=== PATIENT | female | born 1980 | race Caucasian/White ===

== ENCOUNTER 2017-05-04 23:59 | Emergency (ER) | payer OTHER ==
[2017-05-05 00:05] VITALS: RESP 18
[2017-05-05] MEDS ORDERED: IBUPROFEN 800 MG TAB PO STA (00:30)
--- NOTE | 2017-05-05 00:37 | XR ---
Exam: XR RIGHT ANKLE History: Pain. Comparison: None provided. Technique: 3 views. Findings: No acute displaced fracture or dislocation. No significant arthritic or erosive changes. No soft tissue calcification. No erosive changes. No aggressive appearing osseous process. Ankle mortise is maintained, but examination is nonweightbearing. Question mild lateral soft tissue edema. Impression: No acute fracture or dislocation. Impression mild lateral swelling. Correlate clinically.
--- NOTE | 2017-05-05 00:58 | ED ---
General Adult HPI - General Chief complaint: Extremity Injury, Lower Stated complaint: ankle pain Time Seen by Provider: 05/05/17 00:09 Source: patient, RN notes reviewed, old records reviewed Mode of arrival: wheelchair Limitations: no limitations - History of Present Illness Initial comments: 37-year-old female presenting for right ankle/foot injury. Patient states that she jumped out of a hayloft into a pile of hay and twisted her right ankle earlier this evening. She denies any other injury associated. She states she has been able to ambulate since this time, but is has been painful. She has not taken any medication for this. She denies any other complaints at this time. - Related Data Home Medications Medication Instructions Recorded Confirmed Ccs-Ryja-Pyjch Acid 1 tab PO DAILY 11/21/15 01/29/16 [-U Capsule] Omeprazole [PriLOSEC] 20 mg PO AC-BRKFST 12/05/15 01/29/16 Ondansetron HCl [Zofran] 8 mg PO Q8HR PRN 12/17/15 01/29/16 Previous Rx's Medication Instructions Recorded Ibuprofen [Motrin] 800 mg PO Q8HR PRN #21 tab 05/05/17 Allergies Allergy/AdvReac Type Severity Reaction Status Date / Time Penicillins Allergy Rash/Hives Verified 05/05/17 00:05 Review of Systems ROS Statement: Those systems with pertinent positive or pertinent negative responses have been documented in the HPI. ROS Other: All systems not noted in ROS Statement are negative. Past Medical History Past Medical History: No Reported History History of Any Multi-Drug Resistant Organisms: None Reported Past Surgical History: No Surgical Hx Reported Past Anesthesia/Blood Transfusion Reactions: No Reported Reaction Past Psychological History: No Psychological Hx Reported Smoking Status: Never smoker Past Alcohol Use History: None Reported Past Drug Use History: None Reported - Past Family History Father Family Medical History: Diabetes Mellitus, Hypertension General Exam - General Exam Comments Initial Comments: General: Awake and Alert. No acute distress. Does not appear acutely ill. Eyes: DWAYNE, No scleral icterus. HENT: Atraumatic, normocephalic. Mucous membranes moist. T Neck: No JVD. Trachea midline. Cardiovascular: Regular rate and rhythm. No murmur, rub, or gallop is appreciated. Distal pulses intact, DP 2+ bilaterally. Respiratory: Lungs are clear to auscultation bilaterally. No wheezes, rales, rhonchi. No respiratory distress. Gastrointestinal: Soft, Nondistended. Musculoskeletal: Right lateral ankle tenderness. Right dorsal lateral foot tenderness. No proximal fifth metatarsal tenderness. Normal ROM. No gross deformity. No strength deficits. Neurological: A&Ox3. There are no obvious motor or sensory deficits. Coordination appears grossly intact. Speech is normal. Skin: Skin is warm and dry and no rashes or lesions are noted. Psychiatric: Cooperative, appropriate mood & affect, normal judgment. Limitations: no limitations Course Vital Signs 05/05/17 05/05/17 00:02 01:09 Temperature 97.9 F 98.1 F Pulse Rate 74 63 Respiratory 18 18 Rate Blood Pressure 114/67 115/56 O2 Sat by Pulse 98 100 Oximetry Medical Decision Making - Medical Decision Making 37-year-old female presenting for right ankle/foot injury. Mild lateral foot and ankle swelling. No evidence of gross deformity. X-ray imaging is performed without evidence of acute fracture. Discussed ice and elevation and supportive shoes. Given Motrin in the ED. Rx for NSAIDs provided. Discussed close follow-up with PCP. Discussed concerning signs symptoms for immediate return to the ED. Discussed follow-up imaging in 7-10 days if not feeling improved to rule out occult fracture. Order for crutches given as well. Discussed WBAT. Patient and are agreeable with plan and discharge home. - Radiology Data Radiology results: report reviewed, image reviewed Disposition Clinical Impression: Right ankle sprain, Right foot pain Disposition: HOME SELF-CARE Condition: Stable Instructions: Ankle Sprain (ED), Foot Contusion (ED) Prescriptions: Ibuprofen [Motrin] 800 mg PO Q8HR PRN #21 tab PRN Reason: Pain Referrals: Negra Garza III, MD [Primary Care Provider] - 1-2 days Time of Disposition: 01:10
--- NOTE | 2017-05-05 01:05 | XR ---
Exam: XR RIGHT FOOT History: Pain. Comparison: None provided. Technique: No acute displaced fracture or dislocation. Findings: No acute displaced fracture or dislocation. No significant arthritic or erosive changes. No aggressive appearing process. No soft tissue calcifications. Impression: No acute displaced fracture or dislocation. If there is high clinical concern for occult fracture, consider repeat radiographs in 10 days.
[2017-05-05 01:10] VITALS: BP 115/56; PULSE 63; TEMP 98.1
== END 2017-05-05 01:22 | disposition home or self-care (01) ==
LOC: EC 23:59
DX: S93.401A Sprain of unspecified ligament of right ankle, initial encounter (principal); M79.671 Pain in right foot; Z79.899 Other long term (current) drug therapy; Z88.0 Allergy status to penicillin; X50.1XXA Overexertion from prolonged static or awkward postures, initial encounter; Y93.39 Activity, other involving climbing, rappelling and jumping off; Y92.89 Other specified places as the place of occurrence of the external cause
CPT/HCPCS: 99284

== ENCOUNTER 2019-11-30 10:45 | Emergency (ER) | payer OTHER ==
--- NOTE | 2019-11-30 11:27 | ED ---
General Adult HPI - General Chief complaint: Extremity Problem,Nontraumatic Stated complaint: Shoulder pain, SOB Time Seen by Provider: 11/30/19 11:03 Source: patient Mode of arrival: ambulatory Limitations: no limitations - History of Present Illness Initial comments: Patient is a 39-year-old female with no significant past medical history presenting to the emergency department with chief complaint of left shoulder pain. Patient reports yesterday she somewhat sick possibly with the flu. She reports waking up this morning with a left upper chest pain radiating to the left shoulder. Patient states the pain is exacerbated with full inspiration. Patient also reports shortness of breath not exacerbated on exertion. Also reports a mild, intermittent nonproductive cough. Patient also reports a diaphoretic episode but denies any dizziness, lightheadedness, blurry vision, headache, back pain or abdominal pain nausea or vomiting. Patient is not a smoker. Denies night sweats fevers or chills. Only has one family member with an early cardiac secondary to congenital heart disease. No trauma to the region. No reproducible chest pain. - Related Data Home Medications Medication Instructions Recorded Confirmed Ige-Qmtr-Levsx Acid 1 tab PO DAILY 11/21/15 01/29/16 [-U Capsule] Omeprazole [PriLOSEC] 20 mg PO AC-BRKFST 12/05/15 01/29/16 Ondansetron HCl [Zofran] 8 mg PO Q8HR PRN 12/17/15 01/29/16 Previous Rx's Medication Instructions Recorded Ibuprofen [Motrin] 800 mg PO Q8HR PRN #21 tab 05/05/17 Azithromycin [Zithromax Z-pack] 0 mg PO DIRECTED #1 pack 11/30/19 Allergies Allergy/AdvReac Type Severity Reaction Status Date / Time Penicillins Allergy Rash/Hives Verified 11/30/19 10:51 Review of Systems ROS Statement: Those systems with pertinent positive or pertinent negative responses have been documented in the HPI. ROS Other: All systems not noted in ROS Statement are negative. Past Medical History Past Medical History: No Reported History History of Any Multi-Drug Resistant Organisms: None Reported Past Surgical History: No Surgical Hx Reported Past Anesthesia/Blood Transfusion Reactions: No Reported Reaction Past Psychological History: No Psychological Hx Reported Smoking Status: Never smoker Past Alcohol Use History: None Reported Past Drug Use History: None Reported - Past Family History Father Family Medical History: Diabetes Mellitus, Hypertension General Exam Limitations: no limitations General appearance: alert, in no apparent distress Head exam: Present: atraumatic, normocephalic, normal inspection Eye exam: Present: normal appearance, PERRL, EOMI Pupils: Present: normal accommodation ENT exam: Present: normal exam, normal oropharynx, mucous membranes moist, TM's normal bilaterally, normal external ear exam Neck exam: Present: normal inspection, full ROM. Absent: tenderness Respiratory exam: Present: normal lung sounds bilaterally. Absent: wheezes, rhonchi, stridor, chest wall tenderness, accessory muscle use, decreased breath sounds Cardiovascular Exam: Present: regular rate, normal rhythm, normal heart sounds GI/Abdominal exam: Absent: soft, distended, tenderness Extremities exam: Present: normal inspection, full ROM, tenderness (Tenderness along the left shoulder.) Back exam: Present: normal inspection, full ROM Neurological exam: Present: alert, oriented X3 Psychiatric exam: Present: normal affect, normal mood Skin exam: Present: warm, dry, intact, normal color Course Vital Signs 11/30/19 10:49 Temperature 97.5 F L Pulse Rate 97 Respiratory 22 Rate Blood Pressure 144/100 O2 Sat by Pulse 100 Oximetry EKG Findings - EKG Comments: EKG Findings:: Sinus rhythm. No ST changes next ventricular rate 87, SD interval 148, QRS duration 82, QTC 440. Medical Decision Making - Medical Decision Making Patient is a 39-year-old female presenting to the emergency department with chief complaint of left shoulder pain. On examination patient does not have reproducible pain. on Auscultation no wheezing or rhonchi are noted. CBC is un remarkable with no leukocytosis. CMP troponins are negative. EKG shows normal sinus rhythm with no ST changes. Patient is fairly healthy with no significant past medical history. She is not a smoker. Patient is PERC negative. Chest x- ray shows a possible left lower lobe pneumonia. CT of the chest was obtained showing a round pneumonia with alveolar involvement. Trace amounts of pleural effusion. Patient advised to get a repeat imaging after treatment is completed to rule out a mass. Patient given Rocephin in the ED. She'll be discharged with azithromycin. Strict return parameters were thoroughly discussed with patient was understanding and agreeable. Case discussed with physician. - Lab Data Result diagrams: 11/30/19 11:37 11/30/19 11:37 Lab Results 11/30/19 11/30/19 11/30/19 Range/Units 11:37 11:37 11:37 WBC 10.3 (3.8-10.6) k/uL RBC 4.97 (3.80-5.40) m/uL Hgb 12.7 (11.4-16.0) gm/dL Hct 39.3 (34.0-46.0) % MCV 79.0 L (80.0-100.0) fL MCH 25.5 (25.0-35.0) pg MCHC 32.3 (31.0-37.0) g/dL RDW 14.4 (11.5-15.5) % Plt Count 318 (150-450) k/uL Neutrophils % 81 % Lymphocytes % 10 % Monocytes % 4 % Eosinophils % 0 % Basophils % 1 % Neutrophils # 8.4 H (1.3-7.7) k/uL Lymphocytes # 1.0 (1.0-4.8) k/uL Monocytes # 0.4 (0-1.0) k/uL Eosinophils # 0.0 (0-0.7) k/uL Basophils # 0.1 (0-0.2) k/uL PT 10.3 (9.0-12.0) sec INR 1.0 (<1.2) APTT 23.9 (22.0-30.0) sec Sodium 137 (137-145) mmol/L Potassium 4.3 (3.5-5.1) mmol/L Chloride 103 (98-107) mmol/L Carbon Dioxide 21 L (22-30) mmol/L Anion Gap 13 mmol/L BUN 10 (7-17) mg/dL Creatinine 0.62 (0.52-1.04) mg/dL Est GFR (CKD-EPI)AfAm >90 (>60 ml/min/1.73 sqM) Est GFR (CKD-EPI)NonAf >90 (>60 ml/min/1.73 sqM) Glucose 110 H (74-99) mg/dL Calcium 9.5 (8.4-10.2) mg/dL Magnesium 1.8 (1.6-2.3) mg/dL Total Bilirubin 0.9 (0.2-1.3) mg/dL AST 43 H (14-36) U/L ALT 48 H (4-34) U/L Alkaline Phosphatase 109 (38-126) U/L Troponin I (0.000-0.034) ng/mL Total Protein 7.6 (6.3-8.2) g/dL Albumin 4.2 (3.5-5.0) g/dL Influenza Type A RNA (Not Detectd) Influenza Type B (PCR) (Not Detectd) 11/30/19 11/30/19 Range/Units 11:37 11:37 WBC (3.8-10.6) k/uL RBC (3.80-5.40) m/uL Hgb (11.4-16.0) gm/dL Hct (34.0-46.0) % MCV (80.0-100.0) fL MCH (25.0-35.0) pg MCHC (31.0-37.0) g/dL RDW (11.5-15.5) % Plt Count (150-450) k/uL Neutrophils % % Lymphocytes % % Monocytes % % Eosinophils % % Basophils % % Neutrophils # (1.3-7.7) k/uL Lymphocytes # (1.0-4.8) k/uL Monocytes # (0-1.0) k/uL Eosinophils # (0-0.7) k/uL Basophils # (0-0.2) k/uL PT (9.0-12.0) sec INR (<1.2) APTT (22.0-30.0) sec Sodium (137-145) mmol/L Potassium (3.5-5.1) mmol/L Chloride (98-107) mmol/L Carbon Dioxide (22-30) mmol/L Anion Gap mmol/L BUN (7-17) mg/dL Creatinine (0.52-1.04) mg/dL Est GFR (CKD-EPI)AfAm (>60 ml/min/1.73 sqM) Est GFR (CKD-EPI)NonAf (>60 ml/min/1.73 sqM) Glucose (74-99) mg/dL Calcium (8.4-10.2) mg/dL Magnesium (1.6-2.3) mg/dL Total Bilirubin (0.2-1.3) mg/dL AST (14-36) U/L ALT (4-34) U/L Alkaline Phosphatase (38-126) U/L Troponin I <0.012 (0.000-0.034) ng/mL Total Protein (6.3-8.2) g/dL Albumin (3.5-5.0) g/dL Influenza Type A RNA Not Detected (Not Detectd) Influenza Type B (PCR) Not Detected (Not Detectd) Disposition Clinical Impression: Pneumonia involving left lung Disposition: HOME SELF-CARE Condition: Stable Instructions (If sedation given, give patient instructions): Pneumonia (ED) Additional Instructions: Please take prescribed medication as directed. Please follow up with primary care to obtain a repeat imaging after treatment is completed. Return to emergency department if symptoms worsen. Prescriptions: Azithromycin [Zithromax Z-pack] 0 mg PO DIRECTED #1 pack Is patient prescribed a controlled substance at d/c from ED?: No Referrals: Negra Garza III, MD [Primary Care Provider] - 1-2 days Time of Disposition: 14:32
[2019-11-30 12:04] LABS: Basophils # (A) 0.1 k/uL (0-0.2); Basophils % (A) 1 %; Eosinophils % (A) 0 %; HCT 39.3 % (34.0-46.0); HGB 12.7 gm/dL (11.4-16.0); Lymphocytes % (A) 10 %; MCH 25.5 pg (25.0-35.0); MCHC 32.3 g/dL (31.0-37.0); Monocytes # (A) 0.4 k/uL (0-1.0); Monocytes % (A) 4 %; Neutrophils # (A) 8.4 k/uL (1.3-7.7); Neutrophils % (A) 81 %; Platelet Count 318 k/uL (150-450); RBC 4.97 m/uL (3.80-5.40); RDW 14.4 % (11.5-15.5); WBC 10.3 k/uL (3.8-10.6)
[2019-11-30 12:08] LABS: Partial Thromboplastin Time 23.9 sec (22.0-30.0); Prothrombin Time 10.3 sec (9.0-12.0)
[2019-11-30 12:11] LABS: ALT 48 U/L (4-34); AST 43 U/L (14-36); African American GFR (CKD) >90 (>60 ml/min/1.73 sqM); Albumin 4.2 g/dL (3.5-5.0); Alkaline Phosphatase 109 U/L (38-126); Anion Gap 13 mmol/L; Blood Urea Nitrogen 10 mg/dL (7-17); Calcium 9.5 mg/dL (8.4-10.2); Carbon Dioxide 21 mmol/L (22-30); Chloride 103 mmol/L (98-107); Glucose 110 mg/dL (74-99); Magnesium 1.8 mg/dL (1.6-2.3); Non-African American GFR(CKD) >90 (>60 ml/min/1.73 sqM); Sodium 137 mmol/L (137-145); Total Bilirubin 0.9 mg/dL (0.2-1.3); Total Protein 7.6 g/dL (6.3-8.2)
[2019-11-30 12:14] LABS: Potassium 4.3 mmol/L (3.5-5.1)
--- NOTE | 2019-11-30 12:23 | XR ---
EXAMINATION TYPE: XR chest 2V DATE OF EXAM: 11/30/2019 COMPARISON: NONE HISTORY: Chest and left shoulder pain, shortness of breath. TECHNIQUE: Frontal and lateral views of the chest are obtained. FINDINGS: There is left basilar opacity confirmed on 2 views partially silhouetting left hemidiaphra gm. Right lung is clear. The cardiac silhouette size is within normal limits. The osseous structure s are intact. IMPRESSION: Left lower lobe acute pneumonic infiltrate thought present. Correlate clinically. Consid er progress study.
[2019-11-30] MEDS ORDERED: RX INFO: IV CONTRAST WAS GIVEN 1 EACH MISC MISCELLANE PRN (12:57)
--- NOTE | 2019-11-30 13:56 | CT ---
EXAMINATION TYPE: CT chest angio for PE DATE OF EXAM: 11/30/2019 COMPARISON: Chest x-ray earlier today HISTORY: Shoulder pain, Left upper chest pain, SOB CT DLP: 298.7 mGycm. Automated Exposure Control for Dose Reduction was Utilized. CONTRAST: CTA scan of the thorax is performed without and with IV Contrast, patient injected with 100 ml mL of Isovue 370, pulmonary embolism protocol. MIP Images are created on CT scanner and reviewed. FINDINGS: LUNGS: Correlating with x-ray there is masslike consolidation involving the anterior aspect of the le ft lower lobe with additional areas of groundglass opacity throughout the left lower lobe. There appe ar to be coursing enhancing vessels at least along superior aspect of the area. There is some depende nt atelectasis in both lower lobes. There are trace bilateral pleural effusions. No pneumothorax bila terally. There is calcified elongated right upper lobe lesion possible elongated granuloma measuring 1.5 x 0.6 cm axial image 52. No suspicious masses. No pneumothorax bilaterally. Tracheobronchial tree is patent. MEDIASTINUM: There is satisfactory enhancement of the pulmonary artery and its branches, there is no CT evidence for pulmonary embolism. There is prominent left hilar lymph nodes axial image 72 favored reactive measuring 2.0 x 1.1 cm for reference. Slightly prominent but subcentimeter right hilar lymp h nodes. No cardiomegaly or pericardial effusion is seen. Satisfactory enhancement of the aorta with out aneurysm or dissection. OTHER: Mild multilevel spurring in the spine. IMPRESSION: 1. No CT evidence for acute pulmonary embolism. 2. Confirmation of left lower lobe anterior masslike consolidation favoring round pneumonia with nathan cent alveolar edema. Trace left greater than right pleural effusions are present. Reactive left hilar adenopathy thought present. Follow-up study after treatment is advised to rule out underlying mass o r neoplasm.
[2019-11-30] MEDS ORDERED: cefTRIAXone IN SWFI 1,000 MG/10 ML SYRINGE IVP STA (14:24)
[2019-11-30 14:59] VITALS: BP 121/81; PULSE 84; RESP 20; TEMP 98.6
== END 2019-11-30 14:59 | disposition home or self-care (01) ==
LOC: EC 10:45
DX: J18.9 Pneumonia, unspecified organism (principal); M25.512 Pain in left shoulder; Z79.899 Other long term (current) drug therapy; Z88.0 Allergy status to penicillin
CPT/HCPCS: 36415; 80053; 83735; 84484; 85025; 85610; 85730; 87502; 71046; 71275; 99285; 96374; J0696; Q9967

== ENCOUNTER → 2020-01-10 | Outpatient (CLI) | payer OTHER ==
--- NOTE | 2020-01-11 08:59 | CT ---
EXAMINATION TYPE: CT chest w con DATE OF EXAM: 01/10/2020 COMPARISON: 11/30/2019 HISTORY: Pneumonia. CT DLP: 290.7 mGycm, Automated exposure control for dose reduction was used. CONTRAST: Performed injected with 100ml mL of Isovue 300. TECHNIQUE: Axial images were obtained at 5 mm thick sections. Reconstructed images are reviewed on [employer] computer in the coronal plane. FINDINGS: There is a small hypodensity within the right lobe thyroid. Thyroid otherwise appears unrem arkable. There is a 2.2 x 0.7 cm density within the mid right lung. Series [address] PET CT for add itional evaluation. Neoplasm is not excluded. There is a 0.3 cm linear density within the anterior right midlung present previously. Series 4 image 36. A triangular density is adjacent to the major fissure in the right lower lobe measuring 2.0 x 0. 7 cm. Series 4 image 45. This could be some residual from a previous left lower lobe pneumonia. No enlarged mediastinal or hilar adenopathy is evident. A 0.8 cm right hilar lymph node may be pres ent. The ascending aorta diameter at the level of the main pulmonary artery is 2.9 cm. The main pulm onary artery diameter at the bifurcation is 2.[address] sections are obtained through the upper abdomen. Abdomen is essentially unremarkable. IMPRESSIONS: 1. Irregular density peripherally right midlung. This is nonspecific. Pneumonia could be considered w ithin the differential. Underlying neoplasm however should be considered. 2. There are couple of additional areas of increased density within the right middle lobe and left lo wer lobe discussed above.
== END | disposition home or self-care (01) ==
LOC: RADCTMAIN 16:05
PROVIDERS: ATTEND Nurse Practitioner Family
DX: R91.8 Other nonspecific abnormal finding of lung field (principal)
CPT/HCPCS: 71260; Q9967

== ENCOUNTER → 2020-01-19 | Outpatient (CLI) | payer OTHER ==
--- NOTE | 2020-01-21 12:47 | PE ---
EXAMINATION TYPE: PET CT fusion skull to thigh DATE OF EXAM: 01/19/2020 COMPARISON: Chest CT 01/10/2020, CTA chest 11/30/2019 Prior PET/CT: None HISTORY: Lung nodule TECHNIQUE: Following the intravenous administration of 11.08 mCi of F-18 FDG, whole body images are performed from the skull base to the midthigh. Images are reviewed on the computer in the coronal, a xial, and sagittal planes. Reconstructed rotating images are created on independent workstation and reviewed on the computer. A localization and attenuation correction CT is performed in conjunction with the PET scan. DLP: 403.14 mGycm SCAN: Initial Scan Blood glucose: 77 mg/dL Average Mediastinum SUV: 1.41 Average Liver SUV: 1.98 FINDINGS: NECK: No abnormal uptake THORAX: Within the left axillary region there is a focus of increased radiotracer accumulation measur ing 3.17. Image 68 there is some vague increased uptake within the right suprahilar region with an SUV value of 1.84. This is nonspecific and could be inflammatory or early neoplasm. ABDOMEN: No abnormal uptake PELVIS: There is a focus of intense uptake within the left hemipelvis anteriorly. This appears to res natacha adjacent to the left ovary. This is in close approximation to the colon. This is of uncertain oracio ology. Additional workup of the pelvis is recommended. OSSEOUS STRUCTURES: No abnormal uptake LOCALIZATION CT: No suspicious radiotracer accumulation at the left lung base area of increased densi ty. The area of increased density within the right upper lung field, PET image 81, has an SUV value 0 .49 suggesting scarring. COMPARISON: Suspicious uptake within the chest is not identified. There is some abnormal uptake withi n the left axillary region. Additional workup of the pelvis which has no recent imaging at this locat ion is recommended. IMPRESSION: 1. Abnormal uptake within the left hemipelvis which appears to be adjacent to the colon and left ovar y. Recommend pelvic ultrasound for additional evaluation. Pelvic CT may be required for additional ev aluation. 2. Increased signal within the left axillary lymph node uncertain etiology. Recommend mammography. No mammography has been performed at this location. 3. Intermediate signal within the right hilar lymph node can be inflammatory in nature potentially re lated to recent pneumonia. Other etiologies are not excluded.
== END | disposition home or self-care (01) ==
LOC: RADPETMAIN 15:04
PROVIDERS: ATTEND Internal Medicine Critical Care Medicine
DX: R93.7 Abnormal findings on diagnostic imaging of other parts of musculoskeletal system (principal); R93.89 Abnormal findings on diagnostic imaging of other specified body structures
CPT/HCPCS: 78815; A9552

== ENCOUNTER → 2020-01-25 | Outpatient (CLI) | payer OTHER | END | disposition home or self-care (01) | DX: R59.0 Localized enlarged lymph nodes (principal) | CPT/HCPCS: 77062; 77066 ==

== ENCOUNTER → 2020-02-05 | Outpatient (CLI) | payer OTHER | END | disposition home or self-care (01) | DX: R93.89 Abnormal findings on diagnostic imaging of other specified body structures (principal) | CPT/HCPCS: 76856 ==

== ENCOUNTER 2020-02-13 13:36 | Day surgery (SDC) | payer OTHER ==
[2020-02-13 14:04] VITALS: RESP 18; TEMP 97.9
[2020-02-13 14:46] VITALS: BP 117/74; PULSE 80
--- NOTE | 2020-02-13 16:00 | US ---
Discontinued biopsy left axillary node HISTORY: Abnormal PET/CT Correlation to PET CT 01/19/2020, CT 01/10/2020, left axillary ultrasound 01/25/2020 The left axillary lymph node could not be reproduced on today's exam. IMPRESSION: Discontinued biopsy, follow-up clinically, consider follow-up left axillary ultrasound in 3-6 months.
== END 2020-02-13 15:00 | disposition home or self-care (01) ==
LOC: RADPROMAIN 13:36
PROVIDERS: ATTEND Family Medicine
DX: R59.0 Localized enlarged lymph nodes (principal); Z53.8 Procedure and treatment not carried out for other reasons
CPT/HCPCS: 76536

== ENCOUNTER → 2020-03-26 | Day surgery (SDC) | payer OTHER ==
[2020-03-26 08:25] VITALS: BP 117/78; RESP 16
--- NOTE | 2020-03-26 10:39 | MM ---
EXAMINATION TYPE: MG stereo VAD BX RT DATE OF EXAM: 03/26/2020 COMPARISON: Diagnostic right breast mammogram dated 01/25/2020 CLINICAL HISTORY: Indeterminate right breast calcifications for which stereotactic guided biopsy was recommended TECHNIQUE: Stereotactic guided core biopsy of right breast. FINDINGS: The procedure of stereotactic guided core biopsy was explained to the patient. Benefits, a lternatives, and risks were discussed. An informed consent was then obtained. Preprocedural timeout was performed. Most accessible pathway was CC from above approach. Preprocedural localization images were obtained and a 7 mm group of calcifications within the upper outer quadrant of the right breast was demonstrat ed. Coordinates were calculated. Subsequently 10 cc of lidocaine without epinephrine was utilized to anesthetize the skin and deeper subcutaneous soft tissues. The needle was advanced to the appropriate depth. Prefire images were obtained ensuring appropriate location. Postfire injection of 15 cc of li docaine with epinephrine was utilized to anesthetize the site of biopsy. A vacuum assisted biopsy gun was used to obtain 9 core samples. The patient tolerated the procedure well without any immediate complication. The patient was kept in the radiology department for short stay after the procedure and then discharged home in stable condi tion. Targeted calcifications are identified in specimen mammogram. Post biopsy mammogram shows the biopsy marker to appear in satisfactory position relative to the targeted area of concern on the pre procedure images without migration. IMPRESSION: SUCCESSFUL, UNCOMPLICATED STEREOTACTIC GUIDED CORE BIOPSY OF AREA OF A RIGHT UPPER OUTER QUADRANT CARTER CIFICATIONS, FULL PATHOLOGY RESULTS TO FOLLOW. OF NOTE THERE ARE 2 ADDITIONAL GROUPS OF CALCIFICATIO NS IN THE RIGHT UPPER-OUTER QUADRANT FOR WHICH ANY FURTHER RECOMMENDATION WILL BE MADE ON RADIOLOGIC/ PATHOLOGIC CORRELATION.
[2020-03-26 10:42] VITALS: PULSE 81; TEMP 98
== END ==
LOC: RADMAMWWP 08:03
PROVIDERS: ATTEND Surgery
DX: N60.11 Diffuse cystic mastopathy of right breast (principal); R92.0 Mammographic microcalcification found on diagnostic imaging of breast; Z11.59 Encounter for screening for other viral diseases
CPT/HCPCS: 88305; 87635; 19081; A4648; J2001

== ENCOUNTER → 2020-05-14 | Outpatient (CLI) | payer OTHER ==
--- NOTE | 2020-05-14 10:06 | CT ---
EXAMINATION TYPE: CT chest wo con DATE OF EXAM: 05/14/2020 COMPARISON: 01/10/2020 HISTORY: Follow up nodule CT DLP: [address] of the chest was performed with lung and mediastinal window settings submitted. The la ck of contrast limits evaluation of the vascular, mediastinal and parenchymal structures including th e upper abdomen. LUNGS: The lungs are clear and free of infiltrate. No atelectasis. Previously described nodular densi ty right upper lobe now demonstrates internal calcification compatible with granuloma. There is also calcification of a right hilar lymph node. The findings are compatible with granulomatous disease. No suspicious nodules are evident at this time. No pleural effusion. No CT evidence of interstitial daniel ng disease. MEDIASTINUM/MARK: Thoracic aorta is of normal caliber with limited evaluation given lack of contrast . The heart is not enlarged. No evidence for mediastinal mass. No lymph nodes greater than 1cm. UPPER ABDOMEN: Small gallstones identified. OTHER: No significant other abnormality. IMPRESSION: 1. Previously described nodular density right upper lobe now demonstrates internal calcification com patible with granuloma. There is also calcification of a right hilar lymph node. The findings are com patible with granulomatous disease. No suspicious nodules are evident at this time.
== END | disposition home or self-care (01) ==
LOC: RADCTMAIN 09:21
PROVIDERS: ATTEND Internal Medicine Hematology & Oncology
DX: J98.4 Other disorders of lung (principal); Z88.0 Allergy status to penicillin
CPT/HCPCS: 71250

== ENCOUNTER → 2020-07-26 | Outpatient (CLI) | payer OTHER ==
--- NOTE | 2020-07-30 09:18 | PE ---
EXAMINATION TYPE: PET CT fusion skull to thigh DATE OF EXAM: 07/26/2020 COMPARISON: PET CT January 19, 2020. Chest CT May 14, 2020. HISTORY: Solitary pulmonary nodule . Benign stereotactic guided biopsy right breast March 2020. TECHNIQUE: Following the intravenous administration of 10.95 mCi of F-18 FDG, whole body images are performed from the skull base to the midthigh. Images are reviewed on the computer in the coronal, a xial, and sagittal planes. Reconstructed rotating images are created on independent workstation and reviewed on the computer. A noncontrast CT is performed in conjunction with the PET scan. SCAN: Subsequent Scan FINDINGS: SKULL BASE AND NECK: No new areas of abnormal hypermetabolic uptake. CHEST, MEDIASTINUM, AND HILAR REGION: No new areas of abnormal hypermetabolic uptake. No suspicious h ypermetabolic uptake in the left axilla or right suprahilar region on current study. ABDOMEN AND PELVIS: No areas of abnormal hypermetabolic uptake. Normal excretion. OSSEOUS STRUCTURES: No areas of abnormal hypermetabolic uptake. OTHER CT: Stable roughly 1.9 x 0.9 cm hyperdense or calcified scar like opacity right upper to midlun g slightly anteriorly axial image 81 remains ametabolic. Suspect benign granuloma. Dependent calcified gallstones redemonstrated. Some sigmoid colonic diverticula. IMPRESSION: No suspicious hypermetabolic uptake to suggest malignancy on current study.
== END | disposition home or self-care (01) ==
LOC: RADPETMAIN 14:04
PROVIDERS: ATTEND Internal Medicine Hematology & Oncology
DX: R91.1 Solitary pulmonary nodule (principal)
CPT/HCPCS: 78815; A9552

== ENCOUNTER 2020-11-20 18:57 | Emergency (ER) | payer OTHER ==
[2020-11-20 19:20] VITALS: BP 130/80; PULSE 84; RESP 18; TEMP 98.4
[2020-11-20] MEDS ORDERED: FLUORESCEIN STRIPS 1 MG STRIP RIGHT EYE ONE (19:37)
[2020-11-20] MEDS ORDERED: PROPARACAINE 0.5% OPHTH DROPS 15 ML BTL RIGHT EYE STA (19:37)
--- NOTE | 2020-11-20 20:35 | ED ---
Eye Problem HPI - General Source: patient Mode of arrival: ambulatory Limitations: no limitations <Jovana Biswas - Last Filed: 11/20/20 22:24> <Aurelia Stockton - Last Filed: 11/22/20 09:05> - General Chief complaint: Eye Problems Stated complaint: Eye Injury Time Seen by Provider: 11/20/20 19:37 - History of Present Illness Initial comments: Patient is a 40-year-old female presenting to emergency Department with complaints of an injury to her right eye. Patient states just prior to arrival, she was taking down a star off the top of the [employer] tree when it hit the ceiling fan and flew into her right eye. Patient states she does have an abrasion on the outside of her right eye but also noticed a cut on the inside eye. Patient states she does normally wear contacts and stated she was able to take out part of her contact, it did seem to cut through her contact. Patient is describing some irritation of her eye. She denies any blurry vision, no headache. She states her eye just feels "funny and irritated." Patient has no further complaints at this time. (Jovana Biswas) - Related Data Home Medications Medication Instructions Recorded Confirmed Multivitamins, Thera [Multivitamin 1 tab PO DAILY 02/02/20 03/26/20 (formulary)] Cholecalciferol (Vitamin D3) 125 mcg PO DAILY 03/26/20 03/26/20 [Vitamin D3] Previous Rx's Medication Instructions Recorded Gentamicin 0.3% Ophth Oint [Gentak 1 applic RIGHT EYE Q8H 5 Days #1 11/20/20 0.3% Ophth Oint] tube Allergies Allergy/AdvReac Type Severity Reaction Status Date / Time cinnamon Allergy Swelling Verified 11/20/20 19:20 Penicillins Allergy Rash/Hives Verified 11/20/20 19:20 Review of Systems ROS Other: All systems not noted in ROS Statement are negative. <Jovana Biswas - Last Filed: 11/20/20 22:24> ROS Other: All systems not noted in ROS Statement are negative. <Aurelia Stockton - Last Filed: 11/22/20 09:05> ROS Statement: Those systems with pertinent positive or pertinent negative responses have been documented in the HPI. Past Medical History Past Medical History: No Reported History History of Any Multi-Drug Resistant Organisms: None Reported Past Surgical History: No Surgical Hx Reported Past Anesthesia/Blood Transfusion Reactions: No Reported Reaction Past Psychological History: No Psychological Hx Reported Smoking Status: Never smoker Past Alcohol Use History: None Reported Past Drug Use History: None Reported - Past Family History Father Family Medical History: Diabetes Mellitus, Hyperlipidemia, Hypertension <Jovana Biswas - Last Filed: 11/20/20 22:24> General Exam Limitations: no limitations <Jovana Biswas - Last Filed: 11/20/20 22:24> - General Exam Comments Initial Comments: GENERAL: Patient is well-developed and well-nourished. Patient is nontoxic and in no acute distress. HEAD: Atraumatic, normocephalic. EYES: Pupils equal round and reactive to light, extraocular movements intact, sclera anicteric, Eyelids were unremarkable. Right conjunctiva is slightly injected, there is an obvious abrasion on the lateral aspect of the right eye, 3 o'clock position. There is no Benoit sign ENT: TMs normal, nares patent, oropharynx clear without exudates. Moist mucous membranes. NECK: Normal range of motion, supple without lymphadenopathy or JVD. LUNGS: Unlabored respirations. Breath sounds clear to auscultation bilaterally and equal. No wheezes rales or rhonchi. HEART: Regular rate and rhythm without murmurs, rubs or gallops. ABDOMEN: Soft, nontender, normoactive bowel sounds. No guarding, no rebound. No masses appreciated. : Deferred MUSCULOSKELETAL: Normal extremities with adequate strength and normal range of motion, no pitting or edema. No clubbing or cyanosis. NEUROLOGICAL: Patient is alert and oriented x 3. Motor and sensory are also intact. Normal speech, normal gait. PSYCH: Normal mood, normal affect. SKIN: Warm, Dry, normal turgor, no rashes or lesions noted. (Jovana Biswas) Course Vital Signs 11/20/20 19:17 Temperature 98.4 F Pulse Rate 84 Respiratory 18 Rate Blood Pressure 130/80 O2 Sat by Pulse 97 Oximetry Medical Decision Making <Jovana Biswas - Last Filed: 11/20/20 22:24> <Aurelia Stockton - Last Filed: 11/22/20 09:05> - Medical Decision Making Patient is a 40-year-old female here for an injury to her right eye just prior to arrival. On exam patient has an abrasion to the lateral aspect of her right eye, 3 o'clock position. I was able to removed a few pieces of glitter. Her visual acuity is normal. Patient's symptoms did improve with some proparacaine drops. I will start patient on gentamicin drops to prevent infection. She is follow-up with ophthalmology. She is in agreement this plan of care. Case discussed with Dr. Stockton. (Jovana Biswas) I was available for consultation in the emergency department. The history and physical exam were done by the midlevel provider. I was consulted for this patients care. I reviewed the case with the midlevel provider and based on their presentation of the patient, I agree with the assessment, medical decision making and plan of care as documented. Chart was dictated using [employer] dictation software. Attempts were made to correct any dictation errors however some typographical errors may persist. Patient seen during the covid-19 pandemic (Aurelia Stockton) Disposition Is patient prescribed a controlled substance at d/c from ED?: No <Jovana Biswas - Last Filed: 11/20/20 22:24> <Aurelia Stockton - Last Filed: 11/22/20 09:05> Clinical Impression: Right corneal abrasion Disposition: HOME SELF-CARE Condition: Stable Instructions (If sedation given, give patient instructions): Corneal Abrasion (ED) Additional Instructions: Please return to the Emergency Department if symptoms worsen or any other concerns. Use antibiotic ointment as discussed. May take Tylenol or Motrin for discomfort. Follow-up with ophthalmology as discussed. Prescriptions: Gentamicin 0.3% Ophth Oint [Gentak 0.3% Ophth Oint] 1 applic RIGHT EYE Q8H 5 Days #1 tube Referrals: Negra Garza III, MD [Primary Care Provider] - 1-2 days Chip Ziegler MD [STAFF PHYSICIAN] - 1-2 days
== END 2020-11-20 20:45 | disposition home or self-care (01) ==
LOC: EC 18:57
DX: T15.01XA Foreign body in cornea, right eye, initial encounter (principal); Z88.0 Allergy status to penicillin; Z91.018 Allergy to other foods; X58.XXXA Exposure to other specified factors, initial encounter; Y93.89 Activity, other specified
CPT/HCPCS: 65220; 99283

== ENCOUNTER → 2021-10-24 | Outpatient (CLI) | payer OTHER ==
--- NOTE | 2021-10-24 12:13 | MM ---
Reason for exam: screening (asymptomatic). Last mammogram was performed 1 year and 9 months ago. History: Patient had first child at age 33. Family history of breast cancer in maternal aunt at age 50. Benign MG stereo VAD BX RT of the right breast, March 26, 2020. Physical Findings: A clinical breast exam by your physician is recommended on an annual basis and results should be correlated with mammographic findings. MG 3D Diag Mammo W/Cad YAMILETH Bilateral CC, MLO, and XCCL view(s) were taken. Prior study comparison: January 25, 2020, bilateral MG 3d diag mammo w/cad YAMILETH. The breast tissue is heterogeneously dense. This may lower the sensitivity of mammography. Finding: There are typically benign round, regional calcifications in the upper outer quadrant, posterior position of the right breast. Previous mammotome biopsy in the right breast. These results were verbally communicated with the patient and result sheet given to the patient on 10/24/21. ASSESSMENT: Negative, BI-RAD 1 RECOMMENDATION: Routine screening mammogram of both breasts in 1 year.
== END | disposition home or self-care (01) ==
LOC: RADMAMWWP 10:17
PROVIDERS: ATTEND Obstetrics & Gynecology
DX: R92.2 Inconclusive mammogram (principal); R92.1 Mammographic calcification found on diagnostic imaging of breast; Z80.3 Family history of malignant neoplasm of breast
CPT/HCPCS: 77062; 77066

== ENCOUNTER → 2023-03-24 | Outpatient (CLI) | payer OTHER ==
--- NOTE | 2023-03-25 09:15 | MM ---
Reason for Exam: Screening (asymptomatic). Last mammogram was performed 1 year(s) and 5 month(s) ago. Patient History: Menarche at age 12. First Full-Term at age 33. Late child-bearing (after 28). Patient has history of breast feeding. 03/26/2020, Benign Core Biopsy on the right side. Maternal aunt had breast cancer, age 50. Last menstrual period: 03/03/2023 Risk Values: Alice 5 year model risk: 1.5%. NCI Lifetime model risk: 14.5%. Prior Study Comparison: 01/25/2020 Bilateral Diagnostic Mammogram, [facility]. 10/24/2021 Bilateral Diagnostic Mammogram, [facility]. Tissue Density: The breast tissue is heterogeneously dense. This may lower the sensitivity of mammography. Findings: Analyzed By CAD. . A few scattered and loosely grouped tiny benign-appearing round calcifications throughout the bilateral breasts are more numerous in the right breast versus left breast are redemonstrated. There is evidence of prior sampling or biopsy clip in the right breast redemonstrated. Benign-appearing right axillary lymph nodes are again seen. There is no suspicious new group of microcalcifications or new distortion in either breast. Overall Assessment: Benign, BI-RAD 2 Management: Screening Mammogram of both breasts in 1 year. . Patient should continue monthly self-breast exams. A clinical breast exam by your physician is recommended on an annual basis. This exam should not preclude additional follow-up of suspicious palpable abnormalities. Note on Alice scores and lifetime risk: 1. A Alice score greater than 3% is considered moderate risk. If this is the case, consider specialist referral to assess eligibility for a risk reducing agent. 2. If overall lifetime risk for the development of breast cancer is 20% or higher, the patient may qualify for future screening with alternating mammogram and breast MRI. Electronically signed and approved by: Trevon Kidd M.D.
== END | disposition home or self-care (01) ==
LOC: RADMAMWWP 11:08
PROVIDERS: ATTEND Obstetrics & Gynecology
DX: Z12.31 Encounter for screening mammogram for malignant neoplasm of breast (principal); Z80.3 Family history of malignant neoplasm of breast
CPT/HCPCS: 77063; 77067